=== PATIENT | male | born 1980 | race American Indian/Alaskan Native ===

== ENCOUNTER 2022-03-19 17:48 | Emergency (ER) | payer OTHER ==
[~2022-03-19] VITALS: Ht 167.6 cm; Wt 70.3 kg
[~2022-03-19 17:48] MED LIST: Amoxicillin875 MG PO
== END 2022-03-19 21:15 | disposition left against medical advice (07) ==
LOC: ER 17:48
DX: R40.20 Unspecified coma (principal); Z53.21 Procedure and treatment not carried out due to patient leaving prior to being seen by health care provider
CPT/HCPCS: 99281

== ENCOUNTER 2022-12-23 23:24 | Emergency (ER) | payer OTHER ==
[~2022-12-23] VITALS: Ht 167.6 cm; Wt 70.3 kg
[2022-12-23] MEDS ORDERED: NARCAN4 M1 (23:50)
[2022-12-24] VITALS: BP 144/91
== END 2022-12-24 00:17 | disposition left against medical advice (07) ==
LOC: ER 23:24
DX: R06.03 Acute respiratory distress (principal); T40.411A Poisoning by fentanyl or fentanyl analogs, accidental (unintentional), initial encounter; F17.210 Nicotine dependence, cigarettes, uncomplicated; X58.XXXA Exposure to other specified factors, initial encounter
CPT/HCPCS: 93005; 93010; 99284-25

== ENCOUNTER 2023-06-28 16:42 | Emergency (ER) | payer OTHER ==
[~2023-06-28] VITALS: Ht 170.2 cm; Wt 70.3 kg
[~2023-06-28 16:42] MED LIST changes: +NARCAN4 M1
[2023-06-28 16:51] VITALS: BP 149/104
[2023-06-28] MEDS ORDERED: CEPH500 PO (17:42)
== END 2023-06-28 17:45 | disposition home or self-care (01) ==
LOC: ER 16:42
DX: L02.415 Cutaneous abscess of right lower limb (principal); F17.210 Nicotine dependence, cigarettes, uncomplicated; Z88.8 Allergy status to other drugs, medicaments and biological substances
CPT/HCPCS: 10060; 99283-25; A9270